=== PATIENT | female | born 1955 | race Caucasian/White ===

== ENCOUNTER 2024-05-26 15:18 | Outpatient (CLI) | payer MEDICARE | END 2024-05-26 23:59 | disposition home or self-care (01) | LOC: RAD 15:18 | PROVIDERS: ATTEND Nurse Practitioner Family | DX: S82.142A Displaced bicondylar fracture of left tibia, initial encounter for closed fracture (principal); M25.562 Pain in left knee; M25.062 Hemarthrosis, left knee; X58.XXXA Exposure to other specified factors, initial encounter; Y93.89 Activity, other specified; Y92.89 Other specified places as the place of occurrence of the external cause; Y99.8 Other external cause status | CPT/HCPCS: 73700 ==